=== PATIENT | female | born 1975 | race American Indian/Alaskan Native ===

== ENCOUNTER 2016-09-29 10:34 | Outpatient (CLI) | payer OTHER ==
--- NOTE | 2016-09-29 11:57 | XRay Report ---
LUMBAR SPINE RADIOGRAPHS: INDICATION: Lumbar pain. COMPARISON: 09/14/2013. FINDINGS: AP and lateral lumbar spine radiographs demonstrate normal vertebral body stature and alignment. Mild L3-L5 degenerative spurring again noted. Normal disc heights. Intact SI joints. Some extrinsic clothing artifact. Nonobstructive bowel gas pattern. CONCLUSION: No acute radiographic abnormality or significant interval change with mild degenerative changes again seen. Thank you for the opportunity to participate in this patient's care.
== END 2016-09-29 10:35 | disposition home or self-care (01) ==
LOC: XRAY 10:34
PROVIDERS: ATTEND Internal Medicine
DX: F31.9 Bipolar disorder, unspecified (principal); M47.897 Other spondylosis, lumbosacral region
CPT/HCPCS: 72100

== ENCOUNTER 2017-10-19 08:24 | Emergency (ER) | payer MEDICAID, OTHER ==
[2017-10-19 08:37] VITALS: BP 136/86
[2017-10-19] MEDS ORDERED: ASPIRIN PO ONE (08:38)
[2017-10-19 09:15] LABS: Basophils % (Auto) 0.6 % (0.0-1.8); Eosinophils # (Auto) 0.1 K/mm3 (0.0-0.4); Eosinophils % (Auto) 2.3 % (0.0-4.3); Hematocrit 39.1 % (30.3-42.9); Hemoglobin 12.6 gm/dl (10.1-14.3); Lymphocytes # (Auto) 2.1 K/mm3 (1.2-5.4); Lymphocytes % (Auto) 39.4 % (13.4-35.0); Mean Corpuscular HGB Conc 32 % (30-34); Mean Corpuscular Hemoglobin 27 pg (28-32); Mean Corpuscular Volume 83 fl (79-97); Monocytes # (Auto) 0.4 K/mm3 (0.0-0.8); Monocytes % (Auto) 6.6 % (0.0-7.3); Platelet Count 279 K/mm3 (140-440); Red Blood Count 4.69 M/mm3 (3.65-5.03); Red Cell Distribution Width 13.8 % (13.2-15.2)
[2017-10-19 09:32] LABS: BUN/Creatinine Ratio 27; Blood Urea Nitrogen 16 mg/dL (7-17); Calcium 9.5 mg/dL (8.4-10.2); Hemolysis Index 9
== END 2017-10-19 11:22 | disposition left against medical advice (07) ==
LOC: ED 08:24
DX: R07.9 Chest pain, unspecified (principal); Z53.21 Procedure and treatment not carried out due to patient leaving prior to being seen by health care provider
CPT/HCPCS: 36415; 80048; 84484; 85025; 93005; 93010

== ENCOUNTER 2018-04-27 12:50 | Emergency (ER) | payer MEDICAID ==
[2018-04-27 13:09] VITALS: BP 132/81
--- NOTE | 2018-04-27 15:05 | Emergency Department Report ---
ED Extremity Problem HPI - General Chief complaint: Extremity Injury, Upper Stated complaint: NUMB BOTH HANDS Time Seen by Provider: 04/27/18 14:52 Source: patient Mode of arrival: Ambulatory Limitations: No Limitations - History of Present Illness Initial comments: Patient is a 42-year-old female who is presenting with bilateral hand pain. Patient states some hot burning sensation this been present since December. 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 Patient denies any trauma or fevers chills nausea vomiting. Patient states the pain is a 9 out of 10 in severity. - Related Data Previous Rx's Medication Instructions Recorded Last Taken Type Azithromycin [Zithromax] 500 mg PO QDAY #7 tablet 05/19/13 Unknown Rx HYDROcodone/APAP 5-325 [[place] 1 each PO Q6HR PRN #20 tablet 05/19/13 Unknown Rx 5/325 mg] Hydrocodone Bit/Acetaminophen 1 tab PO Q6H PRN #20 tablet 07/11/13 Unknown Rx [Lortab 10-500 mg] Promethazine [Phenergan] 25 mg PO Q6H PRN #12 tablet 07/11/13 Unknown Rx Clindamycin [Clindamycin Oral] 300 mg PO Q8H #30 cap 07/16/13 Unknown Rx Sulfamethoxazole/Trimethoprim 1 each PO BID #20 tablet 07/16/13 Unknown Rx [Bactrim DS] Cyclobenzaprine HCl [Flexeril] 10 mg PO TID PRN #14 tablet 09/14/13 Unknown Rx HYDROcodone/APAP 5-325 [[place] 1 each PO Q6HR PRN #14 tablet 09/14/13 Unknown Rx 5/325 mg] Ibuprofen [Motrin 800 MG tab] 800 mg PO TID #30 tablet 09/14/13 Unknown Rx Famotidine [Pepcid] 20 mg PO BID #20 tablet 07/15/14 Unknown Rx traMADol [Ultram] 50 mg PO Q6HR PRN #14 tablet 07/15/14 Unknown Rx HYDROcodone/APAP 5-325 [[place] 1 each PO Q4HR PRN #12 tablet 04/27/18 Unknown Rx 5/325] predniSONE [Deltasone] 20 mg PO QDAY #5 tab 04/27/18 Unknown Rx Allergies Allergy/AdvReac Type Severity Reaction Status Date / Time IV contrast Allergy Rash Uncoded 07/14/13 06:10 ED Review of Systems ROS: Stated complaint: NUMB BOTH HANDS Other details as noted in HPI Comment: All other systems reviewed and negative ED Past Medical Hx - Past Medical History Hx Congestive Heart Failure: No Hx Diabetes: No Hx Psychiatric Treatment: Yes (depression) Hx Asthma: No Hx COPD: No Additional medical history: high cholestrol - Surgical History Additional Surgical History: x3. tubal ligation - Social History Smoking Status: Never Smoker Substance Use Type: None - Medications Home Medications: Home Medications Medication Instructions Recorded Confirmed Last Taken Type Azithromycin [Zithromax] 500 mg PO QDAY #7 tablet 05/19/13 Unknown Rx HYDROcodone/APAP 5-325 [[place] 1 each PO Q6HR PRN #20 tablet 05/19/13 Unknown Rx 5/325 mg] Hydrocodone Bit/Acetaminophen 1 tab PO Q6H PRN #20 tablet 07/11/13 Unknown Rx [Lortab 10-500 mg] Promethazine [Phenergan] 25 mg PO Q6H PRN #12 tablet 07/11/13 Unknown Rx Clindamycin [Clindamycin Oral] 300 mg PO Q8H #30 cap 07/16/13 Unknown Rx Sulfamethoxazole/Trimethoprim 1 each PO BID #20 tablet 07/16/13 Unknown Rx [Bactrim DS] Cyclobenzaprine HCl [Flexeril] 10 mg PO TID PRN #14 tablet 09/14/13 Unknown Rx HYDROcodone/APAP 5-325 [[place] 1 each PO Q6HR PRN #14 tablet 09/14/13 Unknown Rx 5/325 mg] Ibuprofen [Motrin 800 MG tab] 800 mg PO TID #30 tablet 09/14/13 Unknown Rx Famotidine [Pepcid] 20 mg PO BID #20 tablet 07/15/14 Unknown Rx traMADol [Ultram] 50 mg PO Q6HR PRN #14 tablet 07/15/14 Unknown Rx HYDROcodone/APAP 5-325 [[place] 1 each PO Q4HR PRN #12 tablet 04/27/18 Unknown Rx 5/325] predniSONE [Deltasone] 20 mg PO QDAY #5 tab 04/27/18 Unknown Rx ED Physical Exam - General Limitations: No Limitations General appearance: alert, in no apparent distress - Head Head exam: Present: atraumatic, normocephalic - Eye Eye exam: Present: normal appearance - ENT ENT exam: Present: mucous membranes moist - Neck Neck exam: Present: normal inspection - Respiratory Respiratory exam: Present: normal lung sounds bilaterally. Absent: respiratory distress - Cardiovascular Cardiovascular Exam: Present: regular rate, normal rhythm. Absent: systolic murmur, diastolic murmur, rubs, gallop - GI/Abdominal GI/Abdominal exam: Present: soft, normal bowel sounds - Extremities Exam Extremities exam: Present: normal inspection, full ROM, tenderness, normal capillary refill, other (patient's bilateral radial pulses are 2+.). Absent: joint swelling - Back Exam Back exam: Present: normal inspection - Neurological Exam Neurological exam: Present: alert, oriented X3 - Psychiatric Psychiatric exam: Present: normal affect, normal mood - Skin Skin exam: Present: warm, dry, intact, normal color. Absent: rash ED Course Vital Signs 04/27/18 13:04 Temperature 98.1 F Pulse Rate 74 Respiratory 18 Rate Blood Pressure 132/81 O2 Sat by Pulse 100 Oximetry ED Medical Decision Making - Medical Decision Making Patient is describing radicular type pain in the bilateral hands. Patient referred to orthopedics and will be discharged home. Patient splinted to reduce movement of the wrist and attempted to try to calm the nerve pain. Critical care attestation.: If time is entered above; I have spent that time in minutes in the direct care of this critically ill patient, excluding procedure time. ED Disposition Clinical Impression: Neuropathy Disposition: DC-01 TO HOME OR SELFCARE Is pt being admited?: No Does the pt Need Aspirin: No Condition: Stable Instructions: Peripheral Neuropathy (ED) Referrals: PRIMARY CARE, [Primary Care Provider] - 3-5 Days Time of Disposition: 15:05 Print Language: HEBREW
== END 2018-04-27 15:46 | disposition home or self-care (01) ==
LOC: ED 12:50
DX: G62.9 Polyneuropathy, unspecified (principal); F32.9 Major depressive disorder, single episode, unspecified; E78.00 Pure hypercholesterolemia, unspecified; Z98.51 Tubal ligation status; Z91.041 Radiographic dye allergy status; Z79.899 Other long term (current) drug therapy
CPT/HCPCS: 99283

== ENCOUNTER 2019-04-11 10:02 | Emergency (ER) | payer MEDICAID ==
[2019-04-11] MEDS ORDERED: MORPHINE IV ONE (10:49)
[2019-04-11] MEDS ORDERED: ZOFRAN IV ONE (10:49)
--- NOTE | 2019-04-11 10:53 | Emergency Department Report ---
ED General Adult HPI - General Chief complaint: Abdominal Pain Stated complaint: RT SIDE ABD PAIN Time Seen by Provider: 04/11/19 10:20 Source: patient, EMS Mode of arrival: Stretcher Limitations: No Limitations - History of Present Illness Initial comments: Patient presents to the ED with a chief complaint of RUQ abdominal pain x 2 weeks. patient was seen at another hospital recently and diagnosed with gallstones. The patient states the pain is worse after eating. Also complains of nausea and vomiting. Denies chest pain. -: Gradual Location: abdomen Radiation: other (back) Severity scale (0 -10): 10 Quality: sharp Consistency: constant Improves with: none Worsens with: none Associated Symptoms: denies other symptoms Treatments Prior to Arrival: none - Related Data Previous Rx's Medication Instructions Recorded Last Taken Type Azithromycin [Zithromax] 500 mg PO QDAY #7 tablet 05/19/13 Unknown Rx HYDROcodone/APAP 5-325 [[place] 1 each PO Q6HR PRN #20 tablet 05/19/13 Unknown Rx 5/325 mg] Hydrocodone Bit/Acetaminophen 1 tab PO Q6H PRN #20 tablet 07/11/13 Unknown Rx [Lortab 10-500 mg] Promethazine [Phenergan] 25 mg PO Q6H PRN #12 tablet 07/11/13 Unknown Rx Clindamycin [Clindamycin Oral] 300 mg PO Q8H #30 cap 07/16/13 Unknown Rx Sulfamethoxazole/Trimethoprim 1 each PO BID #20 tablet 07/16/13 Unknown Rx [Bactrim DS] Cyclobenzaprine HCl [Flexeril] 10 mg PO TID PRN #14 tablet 09/14/13 Unknown Rx HYDROcodone/APAP 5-325 [[place] 1 each PO Q6HR PRN #14 tablet 09/14/13 Unknown Rx 5/325 mg] Ibuprofen [Motrin 800 MG tab] 800 mg PO TID #30 tablet 09/14/13 Unknown Rx Famotidine [Pepcid] 20 mg PO BID #20 tablet 07/15/14 Unknown Rx traMADol [Ultram] 50 mg PO Q6HR PRN #14 tablet 07/15/14 Unknown Rx HYDROcodone/APAP 5-325 [[place] 1 each PO Q4HR PRN #12 tablet 04/27/18 Unknown Rx 5/325] predniSONE [Deltasone] 20 mg PO QDAY #5 tab 04/27/18 Unknown Rx HYDROcodone/APAP 7.5-325 [[place] 1 each PO Q6HR PRN #15 tablet 04/11/19 Unknown Rx 7.5/325] Ondansetron [Zofran Odt] 4 mg PO Q4HR PRN #20 tab.rapdis 04/11/19 Unknown Rx Allergies Allergy/AdvReac Type Severity Reaction Status Date / Time IV contrast Allergy Rash Uncoded 07/14/13 06:10 ED Review of Systems ROS: Stated complaint: RT SIDE ABD PAIN Other details as noted in HPI Comment: All other systems reviewed and negative Constitutional: denies: chills, fever Eyes: denies: eye pain, eye discharge, vision change ENT: denies: ear pain, throat pain Respiratory: denies: cough, shortness of breath, wheezing Cardiovascular: denies: chest pain, palpitations Endocrine: no symptoms reported Gastrointestinal: abdominal pain. denies: nausea, diarrhea Genitourinary: denies: urgency, dysuria, discharge Musculoskeletal: denies: back pain, joint swelling, arthralgia Skin: denies: rash, lesions Neurological: denies: headache, weakness, paresthesias Psychiatric: denies: anxiety, depression Hematological/Lymphatic: denies: easy bleeding, easy bruising ED Past Medical Hx - Past Medical History Hx Hypertension: Yes Hx Congestive Heart Failure: No Hx Diabetes: No Hx Psychiatric Treatment: Yes (depression) Hx Asthma: No Hx COPD: No Additional medical history: high cholestrol - Surgical History Past Surgical History?: Yes Additional Surgical History: x3. tubal ligation - Social History Smoking Status: Current Every Day Smoker - Medications Home Medications: Home Medications Medication Instructions Recorded Confirmed Last Taken Type Azithromycin [Zithromax] 500 mg PO QDAY #7 tablet 05/19/13 Unknown Rx HYDROcodone/APAP 5-325 [[place] 1 each PO Q6HR PRN #20 tablet 05/19/13 Unknown Rx 5/325 mg] Hydrocodone Bit/Acetaminophen 1 tab PO Q6H PRN #20 tablet 07/11/13 Unknown Rx [Lortab 10-500 mg] Promethazine [Phenergan] 25 mg PO Q6H PRN #12 tablet 07/11/13 Unknown Rx Clindamycin [Clindamycin Oral] 300 mg PO Q8H #30 cap 07/16/13 Unknown Rx Sulfamethoxazole/Trimethoprim 1 each PO BID #20 tablet 07/16/13 Unknown Rx [Bactrim DS] Cyclobenzaprine HCl [Flexeril] 10 mg PO TID PRN #14 tablet 09/14/13 Unknown Rx HYDROcodone/APAP 5-325 [[place] 1 each PO Q6HR PRN #14 tablet 09/14/13 Unknown Rx 5/325 mg] Ibuprofen [Motrin 800 MG tab] 800 mg PO TID #30 tablet 09/14/13 Unknown Rx Famotidine [Pepcid] 20 mg PO BID #20 tablet 07/15/14 Unknown Rx traMADol [Ultram] 50 mg PO Q6HR PRN #14 tablet 07/15/14 Unknown Rx HYDROcodone/APAP 5-325 [[place] 1 each PO Q4HR PRN #12 tablet 04/27/18 Unknown Rx 5/325] predniSONE [Deltasone] 20 mg PO QDAY #5 tab 04/27/18 Unknown Rx HYDROcodone/APAP 7.5-325 [[place] 1 each PO Q6HR PRN #15 tablet 04/11/19 Unknown Rx 7.5/325] Ondansetron [Zofran Odt] 4 mg PO Q4HR PRN #20 tab.rapdis 04/11/19 Unknown Rx ED Physical Exam - General Limitations: No Limitations General appearance: alert, in no apparent distress - Head Head exam: Present: atraumatic, normocephalic - Eye Eye exam: Present: normal appearance, PERRL, EOMI - ENT ENT exam: Present: mucous membranes moist - Neck Neck exam: Present: normal inspection - Respiratory Respiratory exam: Present: normal lung sounds bilaterally. Absent: respiratory distress - Cardiovascular Cardiovascular Exam: Present: regular rate, normal rhythm. Absent: systolic murmur, diastolic murmur, rubs, gallop - GI/Abdominal GI/Abdominal exam: Present: soft, tenderness (ttp RUQ), normal bowel sounds. Absent: distended - Extremities Exam Extremities exam: Present: normal inspection - Back Exam Back exam: Present: normal inspection - Neurological Exam Neurological exam: Present: alert, oriented X3, CN II-XII intact. Absent: motor sensory deficit - Psychiatric Psychiatric exam: Present: normal affect, normal mood - Skin Skin exam: Present: warm, dry, intact, normal color. Absent: rash ED Course Vital Signs 04/11/19 10:19 Temperature 98.8 F Pulse Rate 83 Respiratory 16 Rate Blood Pressure 144/99 Blood Pressure 144/99 [Left] O2 Sat by Pulse 99 Oximetry ED Medical Decision Making - Lab Data Result diagrams: 04/11/19 11:21 04/11/19 11:21 Lab Results 04/11/19 04/11/19 04/11/19 Range/Units 11:21 11:21 11:21 WBC 5.2 (4.5-11.0) K/mm3 RBC 4.61 (3.65-5.03) M/mm3 Hgb 13.0 (10.1-14.3) gm/dl Hct 38.2 (30.3-42.9) % MCV 83 (79-97) fl MCH 28 (28-32) pg MCHC 34 (30-34) % RDW 13.8 (13.2-15.2) % Plt Count 268 (140-440) K/mm3 Lymph % (Auto) 44.8 H (13.4-35.0) % Mower % (Auto) 6.3 (0.0-7.3) % Eos % (Auto) 1.9 (0.0-4.3) % Baso % (Auto) 0.4 (0.0-1.8) % Lymph # 2.3 (1.2-5.4) K/mm3 Mower # 0.3 (0.0-0.8) K/mm3 Eos # 0.1 (0.0-0.4) K/mm3 Baso # 0.0 (0.0-0.1) K/mm3 Seg Neutrophils % 46.6 (40.0-70.0) % Seg Neutrophils # 2.4 (1.8-7.7) K/mm3 PT 13.7 (12.2-14.9) Sec. INR 1.08 (0.87-1.13) APTT 27.0 (24.2-36.6) Sec. Sodium 139 (137-145) mmol/L Potassium 4.3 (3.6-5.0) mmol/L Chloride 102.5 (98-107) mmol/L Carbon Dioxide 25 (22-30) mmol/L Anion Gap 16 mmol/L BUN 13 (7-17) mg/dL Creatinine 0.8 (0.7-1.2) mg/dL Estimated GFR > 60 ml/min BUN/Creatinine Ratio 16 % Glucose 97 (65-100) mg/dL Calcium 9.4 (8.4-10.2) mg/dL Total Bilirubin 0.20 (0.1-1.2) mg/dL AST 22 (5-40) units/L ALT 25 (7-56) units/L Alkaline Phosphatase 98 (35-129) units/L Total Protein 7.6 (6.3-8.2) g/dL Albumin 4.2 (3.9-5) g/dL Albumin/Globulin Ratio 1.2 % Lipase 22 (13-60) units/L Critical care attestation.: If time is entered above; I have spent that time in minutes in the direct care of this critically ill patient, excluding procedure time. ED Disposition Clinical Impression: Cholelithiases Disposition: - TO HOME OR SELFCARE Is pt being admited?: No Does the pt Need Aspirin: No Condition: Stable Instructions: Abdominal Pain (ED), Cholelithiasis (ED) Additional Instructions: return if worse Referrals: PADDY STEIN [Other] - 3-5 Days LARISSA WELCH DO [Staff Physician] - 3-5 Days Time of Disposition: 14:38
[2019-04-11 11:33] LABS: Basophils % (Auto) 0.4 % (0.0-1.8); Eosinophils # (Auto) 0.1 K/mm3 (0.0-0.4); Eosinophils % (Auto) 1.9 % (0.0-4.3); Hematocrit 38.2 % (30.3-42.9); Lymphocytes # (Auto) 2.3 K/mm3 (1.2-5.4); Lymphocytes % (Auto) 44.8 % (13.4-35.0); Mean Corpuscular HGB Conc 34 % (30-34); Mean Corpuscular Volume 83 fl (79-97); Monocytes # (Auto) 0.3 K/mm3 (0.0-0.8); Monocytes % (Auto) 6.3 % (0.0-7.3); Platelet Count 268 K/mm3 (140-440); Red Blood Count 4.61 M/mm3 (3.65-5.03); Red Cell Distribution Width 13.8 % (13.2-15.2)
[2019-04-11 11:43] LABS: INR 1.08 (0.87-1.13)
[2019-04-11 11:55] LABS: Alanine Aminotransferase 25 units/L (7-56); Albumin 4.2 g/dL (3.9-5); BUN/Creatinine Ratio 16; Blood Urea Nitrogen 13 mg/dL (7-17); Calcium 9.4 mg/dL (8.4-10.2); Hemolysis Index 3
--- NOTE | 2019-04-11 14:00 | Ultrasound Report ---
LIMITED RUQ ABDOMINAL ULTRASOUND INDICATION: Right upper quadrant abdominal pain. COMPARISON: No relevant prior imaging study available. FINDINGS: Pancreas: Visualized portions show no significant abnormality. Abdominal Aorta: No significant abnormality. IVC: No significant abnormality. Liver: The liver measures 15 cm in length. Mild diffuse fatty infiltration is suspected in the liver . No mass or surface nodularity. Normal hepatopedal blood flow in the main portal vein. Gallbladder: A small amount of sludge is identified in the gallbladder. No shadowing stones, wall thi ckening or surrounding fluid.. Bile ducts: No significant abnormality. Common bile duct measures 4 mm. Right kidney: No significant abnormality visualized.. Free fluid: None. Additional Findings: None. IMPRESSION: Mild hepatic steatosis. Mild degree of sludge in the gallbladder. Signer Name: Delano Robbins Jr, MD Signed: 04/11/2019 1:55 PM Workstation Name: [id number]
[2019-04-11 15:03] VITALS: BP 123/80
== END 2019-04-11 15:09 | disposition home or self-care (01) ==
LOC: ED 10:02
DX: K80.20 Calculus of gallbladder without cholecystitis without obstruction (principal); I10 Essential (primary) hypertension; F32.9 Major depressive disorder, single episode, unspecified; F17.200 Nicotine dependence, unspecified, uncomplicated; E78.00 Pure hypercholesterolemia, unspecified; Z98.51 Tubal ligation status; Z98.890 Other specified postprocedural states; Z79.899 Other long term (current) drug therapy; Z91.041 Radiographic dye allergy status
CPT/HCPCS: 36415; 76705; 80053; 83690; 85025; 85610; 85730; 96374; 96375; 99284; J2270; J2405

== ENCOUNTER 2019-04-13 05:28 | Emergency (ER) | payer MEDICAID ==
--- NOTE | 2019-04-13 06:10 | Emergency Department Report ---
ED General Adult HPI - General Chief complaint: Chest Pain Stated complaint: ABD PAIN SURGERY ON 04/12/19 Time Seen by Provider: 04/13/19 06:05 Source: patient, family, RN notes reviewed Mode of arrival: Wheelchair Limitations: No Limitations - History of Present Illness Initial comments: This is a 43-year-old female. The patient is not known to this provider previously. The patient has a history of chronic abdominal pain. She reports that she went to [facility] in [place] yesterday; [address]. [address], [facility]; [phone]. She had surgery done yesterday. She doesn't know what she had done. She requested that her daughter translate for her. She gives permission for her daughter to receive medical information. She presents to the ER today with a complaint of simultaneous left posterior thoracic pain, left anterior chest wall pain, epigastric pain. She has epigastric abdominal pain. She states the pain is constant since yesterday. She states it does not radiate anywhere. It increases with palpation, range of motion. It decreases with rest. Initially no nausea. No headache, neck pain, lower abdominal pain. No urinary symptoms. No extremity complaints. No recent aspirin consumption. The patient states that she is not . The patient states no DVT or pulmonary embolism risk factors, with the exception of recent surgery. -: Gradual Location: chest, back, abdomen Radiation: non-radiation Quality: aching Consistency: constant Improves with: other Worsens with: other - Related Data Previous Rx's Medication Instructions Recorded Last Taken Type Azithromycin [Zithromax] 500 mg PO QDAY #7 tablet 05/19/13 Unknown Rx HYDROcodone/APAP 5-325 [[place] 1 each PO Q6HR PRN #20 tablet 05/19/13 Unknown Rx 5/325 mg] Hydrocodone Bit/Acetaminophen 1 tab PO Q6H PRN #20 tablet 07/11/13 Unknown Rx [Lortab 10-500 mg] Promethazine [Phenergan] 25 mg PO Q6H PRN #12 tablet 07/11/13 Unknown Rx Clindamycin [Clindamycin Oral] 300 mg PO Q8H #30 cap 07/16/13 Unknown Rx Sulfamethoxazole/Trimethoprim 1 each PO BID #20 tablet 07/16/13 Unknown Rx [Bactrim DS] Cyclobenzaprine HCl [Flexeril] 10 mg PO TID PRN #14 tablet 09/14/13 Unknown Rx HYDROcodone/APAP 5-325 [[place] 1 each PO Q6HR PRN #14 tablet 09/14/13 Unknown Rx 5/325 mg] Ibuprofen [Motrin 800 MG tab] 800 mg PO TID #30 tablet 09/14/13 Unknown Rx Famotidine [Pepcid] 20 mg PO BID #20 tablet 07/15/14 Unknown Rx traMADol [Ultram] 50 mg PO Q6HR PRN #14 tablet 07/15/14 Unknown Rx HYDROcodone/APAP 5-325 [[place] 1 each PO Q4HR PRN #12 tablet 04/27/18 Unknown Rx 5/325] predniSONE [Deltasone] 20 mg PO QDAY #5 tab 04/27/18 Unknown Rx HYDROcodone/APAP 7.5-325 [[place] 1 each PO Q6HR PRN #15 tablet 04/11/19 Unknown Rx 7.5/325] Ondansetron [Zofran Odt] 4 mg PO Q4HR PRN #20 tab.rapdis 04/11/19 Unknown Rx Ondansetron [Zofran Odt] 4 mg PO Q8HR PRN #20 tab.rapdis 04/13/19 Unknown Rx oxyCODONE /ACETAMINOPHEN [Percocet 1 tab PO Q6HR PRN #9 tablet 04/13/19 Unknown Rx 5/325] Allergies Allergy/AdvReac Type Severity Reaction Status Date / Time IV contrast Allergy Rash Uncoded 07/14/13 06:10 ED Review of Systems ROS: Stated complaint: ABD PAIN SURGERY ON 04/12/19 Other details as noted in HPI Constitutional: denies: fever Eyes: denies: eye discharge ENT: denies: epistaxis Respiratory: shortness of breath. denies: cough Cardiovascular: chest pain Gastrointestinal: abdominal pain, nausea Genitourinary: denies: dysuria Musculoskeletal: back pain Skin: denies: lesions Neurological: weakness Psychiatric: anxiety ED Past Medical Hx - Past Medical History Previous Medical History?: Yes Hx Hypertension: Yes Hx Congestive Heart Failure: No Hx Diabetes: No Hx Psychiatric Treatment: Yes (depression, bipolar) Hx Asthma: No Hx COPD: No Additional medical history: high cholestrol - Surgical History Past Surgical History?: Yes Hx Cholecystectomy: Yes Additional Surgical History: x3. tubal ligation. hysterectomy - Social History Smoking Status: Never Smoker Substance Use Type: None - Medications Home Medications: Home Medications Medication Instructions Recorded Confirmed Last Taken Type Azithromycin [Zithromax] 500 mg PO QDAY #7 tablet 05/19/13 Unknown Rx HYDROcodone/APAP 5-325 [[place] 1 each PO Q6HR PRN #20 tablet 05/19/13 Unknown Rx 5/325 mg] Hydrocodone Bit/Acetaminophen 1 tab PO Q6H PRN #20 tablet 07/11/13 Unknown Rx [Lortab 10-500 mg] Promethazine [Phenergan] 25 mg PO Q6H PRN #12 tablet 07/11/13 Unknown Rx Clindamycin [Clindamycin Oral] 300 mg PO Q8H #30 cap 07/16/13 Unknown Rx Sulfamethoxazole/Trimethoprim 1 each PO BID #20 tablet 07/16/13 Unknown Rx [Bactrim DS] Cyclobenzaprine HCl [Flexeril] 10 mg PO TID PRN #14 tablet 09/14/13 Unknown Rx HYDROcodone/APAP 5-325 [[place] 1 each PO Q6HR PRN #14 tablet 09/14/13 Unknown Rx 5/325 mg] Ibuprofen [Motrin 800 MG tab] 800 mg PO TID #30 tablet 09/14/13 Unknown Rx Famotidine [Pepcid] 20 mg PO BID #20 tablet 07/15/14 Unknown Rx traMADol [Ultram] 50 mg PO Q6HR PRN #14 tablet 07/15/14 Unknown Rx HYDROcodone/APAP 5-325 [[place] 1 each PO Q4HR PRN #12 tablet 04/27/18 Unknown Rx 5/325] predniSONE [Deltasone] 20 mg PO QDAY #5 tab 04/27/18 Unknown Rx HYDROcodone/APAP 7.5-325 [[place] 1 each PO Q6HR PRN #15 tablet 04/11/19 Unknown Rx 7.5/325] Ondansetron [Zofran Odt] 4 mg PO Q4HR PRN #20 tab.rapdis 04/11/19 Unknown Rx Ondansetron [Zofran Odt] 4 mg PO Q8HR PRN #20 tab.rapdis 04/13/19 Unknown Rx oxyCODONE /ACETAMINOPHEN [Percocet 1 tab PO Q6HR PRN #9 tablet 04/13/19 Unknown Rx 5/325] ED Physical Exam - General Limitations: Language Barrier General appearance: alert, anxious, obese - Head Head exam: Present: atraumatic, normocephalic - Eye Eye exam: Present: normal appearance, EOMI - ENT ENT exam: Present: normal exam, normal orophraynx, mucous membranes moist, normal external ear exam - Neck Neck exam: Present: normal inspection, full ROM. Absent: tenderness, meningismus - Respiratory Respiratory exam: Present: normal lung sounds bilaterally, chest wall tenderness (chaperoned by nurse Tamiko Kearney). Absent: respiratory distress, wheezes, rales, rhonchi, stridor - Cardiovascular Cardiovascular Exam: Present: regular rate, normal rhythm, normal heart sounds. Absent: bradycardia, tachycardia, irregular rhythm, systolic murmur, diastolic murmur, rubs, gallop - GI/Abdominal GI/Abdominal exam: Present: soft, other (multiple surgical sites noted. There is no redness, pus or streaking. Multiple surgical sites noted. No redness, pus or streaking.). Absent: distended, tenderness, guarding, rebound, rigid, pulsatile mass - Extremities Exam Extremities exam: Present: normal inspection, full ROM, other (2+ pulses noted in the bilateral upper, lower extremities. Compartments soft. No long bony tenderness. The pelvis is stable.). Absent: pedal edema, joint swelling, calf tenderness - Back Exam Back exam: Present: paraspinal tenderness. Absent: tenderness - Neurological Exam Neurological exam: Present: alert, other (Extraocular movements intact. Tongue midline. No facial droop. Facial sensation intact to light touch in the V1, V2, V3 distribution bilaterally. 5 and 5 strength in 4 extremities.. Sensation is intact to light touch in 4 extremities.) - Psychiatric Psychiatric exam: Present: anxious - Skin Skin exam: Present: warm, dry, intact, normal color. 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 1 06/18/2018 ACETAMINOPHEN-COD #3 TABLET 30.0 7 RA GIRISH [id number] EMILY' ([id number]) 0 19.29 MME Medicaid [place] 04/16/2018 2 04/16/2018 HYDROCODONE-ACETAMIN 5-325 MG 10 3 JU CLA [id number] ANGELLA-M ([id number]) 0 [place] Reevaluation #2: 04/13/19 08:00 Differential diagnosis, including without limited to: Postoperative pain, musculoskeletal pain, costochondritis, GERD, gastritis, hiatal hernia, pneumonia, pulmonary embolism, postsurgical complication Assessment and plan: 43-year-old female who presents to the ER today with a complaint of left posterior thoracic pain, left anterior chest wall pain, subsequent nausea, reports having had a surgery yesterday. The patient does not know what surgery she had done. She does not know the name of her surgeon. Her physical exam is unremarkable, with the exception of reproducible left posterior thoracic pain, anterior chest wall tenderness, and postsurgical wounds, which are covered, nontender, and did not appear to be superinfected. Her symptoms will be treated. The CT angiogram is not currently working at this time as the hospital is undergoing scheduled down time. However, we will obtain a CT scan of the chest, and a CT scan of the abdomen and pelvis with IV and oral contrast. Patient endorses that her allergy to IV contrast is burning in her buttocks. She does not endorse any anaphylactic or anaphylactoid reaction to IV contrast. Furthermore, the patient has received IV contrast at this hospital in the past, without any documented complications that I can determine. We will premedicate her, treat her symptoms. D-dimer elevated, chest x-ray reviewed and appreciated, nuclear medicine study obtained, and we will reassess. From a coronary artery disease standpoint, the patient is low risk by the heart score. 04/13/19 08:00 Reevaluation #3: 04/13/19 08:43 Laboratory studies unremarkable. Nuclear medicine study is low probability for pulmonary embolism. Patient sleeping comfortably, in stretcher, does not appear to be in any acute distress. Her second EKG is unchanged from her prior EKG. Apparently, she had a cholecystectomy yesterday, performed laparoscopically, and her general surgeon of record is Dr. Gibbs Reevaluation #4: 04/13/19 10:17 Patient reevaluated multiple times while here in this department. Nuclear medicine study low probability for pulmonary embolism. Troponin is negative 2. EKG is unchanged 2. CT scan of the chest is negative for acute disease. CT scan of the abdomen and pelvis negative for acute significant disease, shows expected postsurgical findings. Patient does not appear to have an emergent medical condition at this time. She'll need to follow-up with her outpatient surgeon, and she can follow-up with an outpatient primary care doctor or cook pickled meat. We will discharge with pain medication and nausea medication. Reevaluation #5: 04/13/19 10:26 The belly is soft on repeat final examination. The patient is sleeping comfortably in her stretcher and in no acute distress. Explain significance of laboratory studies and objective imaging studies to patient in [place]i and in Macedonian. Addition, family at the bedside, and patient provides consent for her information to to be discussed in front of her family. Furthermore, her family additionally translates with this provider informs the patient. The patient was counseled that she does not appear to have an emergent medical condition at this time, and that she will need to follow-up with her general surgeon of record and her primary care doctor. Furthermore, she is given printed instructions in [place]i and Macedonian. ED Medical Decision Making - Lab Data Result diagrams: 04/13/19 05:51 04/13/19 05:51 Vital Signs 04/13/19 04/13/19 04/13/19 05:30 06:10 06:16 Temperature 98.2 F Pulse Rate 96 H 88 85 Respiratory 18 17 13 Rate Blood Pressure 160/92 152/83 O2 Sat by Pulse 97 97 Oximetry 04/13/19 04/13/19 06:29 06:30 Temperature Pulse Rate 86 Respiratory 18 17 Rate Blood Pressure 152/83 O2 Sat by Pulse 98 Oximetry Lab Results 04/13/19 04/13/19 04/13/19 Range/Units 05:51 05:51 05:51 WBC 8.4 (4.5-11.0) K/mm3 RBC 4.71 (3.65-5.03) M/mm3 Hgb 13.0 (10.1-14.3) gm/dl Hct 39.4 (30.3-42.9) % MCV 84 (79-97) fl MCH 28 (28-32) pg MCHC 33 (30-34) % RDW 13.9 (13.2-15.2) % Plt Count 265 (140-440) K/mm3 PT 13.1 (12.2-14.9) Sec. INR 1.02 (0.87-1.13) APTT 23.0 L (24.2-36.6) Sec. D-Dimer 297.48 H (0-234) ng/mlDDU Sodium 139 (137-145) mmol/L Potassium 4.2 (3.6-5.0) mmol/L Chloride 102.8 (98-107) mmol/L Carbon Dioxide 21 L (22-30) mmol/L Anion Gap 19 mmol/L BUN 9 (7-17) mg/dL Creatinine 0.6 L (0.7-1.2) mg/dL Estimated GFR > 60 ml/min BUN/Creatinine Ratio 15 % Glucose 147 H (65-100) mg/dL Calcium 9.7 (8.4-10.2) mg/dL Magnesium (1.7-2.3) mg/dL Total Bilirubin (0.1-1.2) mg/dL Direct Bilirubin (0-0.2) mg/dL Indirect Bilirubin mg/dL AST (5-40) units/L ALT (7-56) units/L Alkaline Phosphatase (35-129) units/L Total Creatine Kinase (30-135) units/L Troponin T < 0.010 (0.00-0.029) ng/mL Total Protein (6.3-8.2) g/dL Albumin (3.9-5) g/dL Albumin/Globulin Ratio % Lipase (13-60) units/L /31/19 Range/Units 06:53 WBC (4.5-11.0) K/mm3 RBC (3.65-5.03) M/mm3 Hgb (10.1-14.3) gm/dl Hct (30.3-42.9) % MCV (79-97) fl MCH (28-32) pg MCHC (30-34) % RDW (13.2-15.2) % Plt Count (140-440) K/mm3 PT (12.2-14.9) Sec. INR (0.87-1.13) APTT (24.2-36.6) Sec. D-Dimer (0-234) ng/mlDDU Sodium (137-145) mmol/L Potassium (3.6-5.0) mmol/L Chloride (98-107) mmol/L Carbon Dioxide (22-30) mmol/L Anion Gap mmol/L BUN (7-17) mg/dL Creatinine (0.7-1.2) mg/dL Estimated GFR ml/min BUN/Creatinine Ratio % Glucose (65-100) mg/dL Calcium (8.4-10.2) mg/dL Magnesium 2.00 (1.7-2.3) mg/dL Total Bilirubin 0.30 (0.1-1.2) mg/dL Direct Bilirubin < 0.2 (0-0.2) mg/dL Indirect Bilirubin 0.1 mg/dL AST 50 H (5-40) units/L ALT 40 (7-56) units/L Alkaline Phosphatase 95 (35-129) units/L Total Creatine Kinase 111 (30-135) units/L Troponin T (0.00-0.029) ng/mL Total Protein 7.1 (6.3-8.2) g/dL Albumin 4.0 (3.9-5) g/dL Albumin/Globulin Ratio 1.3 % Lipase 14 (13-60) units/L - EKG Data -: EKG Interpreted by Md EKG shows normal: sinus rhythm Rate: normal - EKG Data Interpretation: unchanged when compared t 04/13/19 07:59 This is a sinus rhythm, 85 bpm, normal axis, qtc 134 ms, poor R wave progression, EKG is not consistent with ST elevation myocardial infarction, it is unchanged from prior EKG from October 2017. - Radiology Data Radiology results: report reviewed, image reviewed Print Report Referring Physician: ANGELICA SORIANO Patient Name: WILTON DAVIS Date of : 1975 Sex: Female Report Date: 2019-04-13 Report Status: Finalized Findings [facility] [address] [place] [address] XRay Report Signed Patient: WILTON DAVIS MR#: [id number] : 1975 Acct:[id number] Age/Sex: 43 / F ADM Date: 04/13/19 Loc: ED At [facility] Dr: Ordering Physician: ANGELICA SORIANO MD Date of Service: 04/13/19 Procedure(s): XR chest 1V ap Accession Number(s): [id number] cc: ANGELICA SORIANO MD Fluoro Time In Minutes: CHEST 1 VIEW INDICATION / CLINICAL INFORMATION: Chest Pain. COMPARISON: None available. FINDINGS: SUPPORT DEVICES: None. HEART / MEDIASTINUM: No significant abnormality. LUNGS / PLEURA: Minimal right basilar subsegmental atelectasis. No pneumothorax. ADDITIONAL FINDINGS: No significant additional findings. IMPRESSION: Minimal right basilar subsegmental atelectasis. The left lung is clear Signer Name: Basilio Voss MD FACR Signed: 04/13/2019 6:35 AM Workstation Name: [id number] Transcribed By: MS Dictated By: Basilio Voss MD Electronically Authenticated By: Basilio Voss MD Signed Date/Time: 04/13/19 0635 Critical care attestation.: If time is entered above; I have spent that time in minutes in the direct care of this critically ill patient, excluding procedure time. ED Disposition Clinical Impression: Left-sided thoracic back pain, Chest wall pain Disposition: DC- TO HOME OR SELFCARE Is pt being admited?: No Does the pt Need Aspirin: No Condition: Stable Instructions: Chest Pain (ED) Additional Instructions: Rest, avoid heavy lifting, and avoid strenuous physical activities. Take the pain medication, nausea medication as needed/directed. If taking Percocet for pain, do not drive, consume alcohol, or make important decisions. Recommend patient follow up with her general surgeon within the next 48-72 hours. Recommend patient follow up with the primary care doctor or cook pickled meat for her complaint of chest pain within the next 2-3 days. Return to the emergency room right away with new, worsened or different symptoms, or symptoms not present on the initial emergency room evaluation. Patients general surgeon contact information is as follows: [address] [place], [place] [address] Email: [email or web address] [place], evite levantar objetos pesados ??y evite actividades fsicas extenuantes. [place] el medicamento para el dolor, medicamentos para las nuseas segn sea necesario / dirigido. Si cm Percocet para el dolor, no conduzca, no consuma alcohol ni tome decisiones importantes. Recomiende un seguimiento del paciente con hernandez cirujano general dentro de las prximas 48-72 horas. Recomiende un seguimiento del paciente con el mdico de atencin primaria o el cardilogo para hernandez queja de dolor en el pecho dentro de los prximos 2-3 oconnor. Regrese a la gera de emergencias de inmediato con sntomas nuevos, empeorados o diferentes, o sntomas que no estn presentes en la evaluacin inicial de la gera de emergencias. La informacin de contacto del cirujano general de los pacientes es la siguiente: [address] [place], [place] [address] Correo [email or web address]: [email or web address] Prescriptions: oxyCODONE /ACETAMINOPHEN [Percocet 5/325] 1 tab PO Q6HR PRN #9 tablet PRN Reason: Pain Ondansetron [Zofran Odt] 4 mg PO Q8HR PRN #20 tab.rapdis PRN Reason: Nausea Referrals: [facility] [Provider Group] - 3-5 Days [facility] [Provider Group] - 3-5 Days Print Language: HEBREW
[2019-04-13] MEDS ORDERED: MORPHINE IV ONE (06:19)
[2019-04-13] MEDS ORDERED: NACL 0.9% 1000 ML 1,000 ML IV ONE (06:19)
[2019-04-13] MEDS ORDERED: PEPCID IV ONE (06:19)
[2019-04-13] MEDS ORDERED: SOLU-Medrol IV ONE (06:19)
[2019-04-13] MEDS ORDERED: BENADRYL IV ONE (06:19)
[2019-04-13 06:20] LABS: Hematocrit 39.4 % (30.3-42.9); Mean Corpuscular HGB Conc 33 % (30-34); Mean Corpuscular Volume 84 fl (79-97); Platelet Count 265 K/mm3 (140-440); Red Blood Count 4.71 M/mm3 (3.65-5.03); Red Cell Distribution Width 13.9 % (13.2-15.2)
[2019-04-13 06:36] LABS: INR 1.02 (0.87-1.13)
[2019-04-13 06:39] LABS: BUN/Creatinine Ratio 15; Blood Urea Nitrogen 9 mg/dL (7-17); Calcium 9.7 mg/dL (8.4-10.2); Hemolysis Index 3
--- NOTE | 2019-04-13 06:40 | XRay Report ---
CHEST 1 VIEW INDICATION / CLINICAL INFORMATION: Chest Pain. COMPARISON: None available. FINDINGS: SUPPORT DEVICES: None. HEART / MEDIASTINUM: No significant abnormality. LUNGS / PLEURA: Minimal right basilar subsegmental atelectasis. No pneumothorax. ADDITIONAL FINDINGS: No significant additional findings. IMPRESSION: Minimal right basilar subsegmental atelectasis. The left lung is clear Signer Name: Basilio Voss MD FACRavinder Signed: 04/13/2019 6:35 AM Workstation Name: [email or web address]
[2019-04-13] MEDS ORDERED: ZOFRAN ONE (06:59)
[2019-04-13] MEDS ORDERED: ZOFRAN IV ONE (07:03)
[2019-04-13 07:43] LABS: Alanine Aminotransferase 40 units/L (7-56)
[2019-04-13 07:47] LABS: Bilirubin,Direct < 0.2 mg/dL (0-0.2)
--- NOTE | 2019-04-13 08:11 | Nuclear Medicine Report ---
VENTILATION PERFUSION PULMONARY SCINTIGRAPHY HISTORY: Chest pain, shortness of breath. Recent gallbladder surgery this week. COMPARISON: 04/13/2019 at 0617 hours chest radiograph. TECHNIQUE: Radiopharmaceutical was inhaled. Tc-99m-MAA was then injected. Ventilation and perfusion images were acquired. RADIOPHARMACEUTICAL: 19 mCi of Xe-133 inhaled 5 mCi of Tc-99m-MAA injected FINDINGS: VENTILATION: No significant air trapping or defect. PERFUSION: No significant segmental or non-segmental defect. Additional Findings: None. IMPRESSION: 1. Low probability for pulmonary embolism. Signer Name: Delano Robbins Jr, MD Signed: 04/13/2019 8:07 AM Workstation Name: [id number]
--- NOTE | 2019-04-13 09:45 | Cat Scan Report ---
CT CHEST, ABDOMEN AND PELVIS WITH CONTRAST HISTORY: 1 day status post cholecystectomy. Back and chest pain on the left side. COMPARISON: None available. TECHNIQUE: CT images of the chest, abdomen and pelvis were obtained following administration of intra venous contrast.All CT scans at this location are performed using CT dose reduction for ALARA by mean s of automated exposure control. CONTRAST: 100 ml of Omnipaque 300. FINDINGS: CT CHEST: Heart and Pericardium: Normal. Vasculature: Normal. Lymphatics: No lymphadenopathy. Lungs: Mild bilateral lower lobe subsegmental atelectasis, right greater than left. No pleural effusi on. No pneumothorax. Trachea and Bronchi: No significant abnormality. Osseous Structures: Normal CT ABDOMEN: Liver: Normal. Biliary: Status post cholecystectomy with minimal postsurgical stranding in the bladder fossa. A sing le focus of air in the gallbladder fossa. Spleen: No significant abnormality. Unenlarged. Pancreas: No significant abnormality. Adrenals: No significant abnormality. Kidneys: No significant abnormality. The kidneys are normally opacified and the renal collecting syst ems are nondilated. Lymphatics: No lymphadenopathy. Vasculature: No significant abnormality. Bowel/Peritoneum: No significant abnormality. Minimal free air limited to the gallbladder fossa. No f ree fluid. Appendix not visualized. No pericecal inflammation. CT PELVIS: : Status post hysterectomy with a healed midline surgical scar. Normal urinary bladder and vaginal cuff. Ovaries are not identified. Osseous Structures: Normal Additional Findings: Minimal evidence of recent surgery in the anterior abdominal wall. No free pelvi c fluid. IMPRESSION: 1. Mild bilateral lower lobe subsegmental atelectasis, right greater than left and otherwise normal c hest. 2. Status post cholecystectomy with no evidence of complication. 3. Normal pelvis status post hysterectomy. Signer Name: Saúl Moreira MD Signed: 04/13/2019 9:41 AM Workstation Name: [id number]
[2019-04-13 10:51] VITALS: BP 131/78
[2019-04-13 11:18] LABS: Basophils % (Manual) 0 % (0.0-1.8); Eosinophils % (Manual) 0 % (0.0-4.3); Large Platelets Rare; Monocytes % (Manual) 0 % (0.0-7.3); Platelet Estimate Consistent w Auto; RBC Morphology Normal; Total Cells Counted 100
== END 2019-04-13 10:51 | disposition home or self-care (01) ==
LOC: ED 05:28
DX: M54.6 Pain in thoracic spine (principal); R07.89 Other chest pain; I10 Essential (primary) hypertension; F32.9 Major depressive disorder, single episode, unspecified; E78.00 Pure hypercholesterolemia, unspecified; Z90.49 Acquired absence of other specified parts of digestive tract; Z98.51 Tubal ligation status; Z90.710 Acquired absence of both cervix and uterus; Z79.899 Other long term (current) drug therapy; Z79.1 Long term (current) use of non-steroidal anti-inflammatories (NSAID); Z79.2 Long term (current) use of antibiotics; Z91.041 Radiographic dye allergy status
CPT/HCPCS: 36415; 71045; 71260; 74177; 78582; 80048; 80076; 82550; 83690; 83735; 84484; 85007; 85025; 85379; 85610; 85730; 93005; 93010; 96374; 96375; 99285; A9540; A9558; J1200; J2270; J2405; J2930; J7030; Q9967; 96361; Q9963

== ENCOUNTER 2019-04-14 16:34 | Emergency (ER) | payer MEDICAID ==
--- NOTE | 2019-04-14 17:32 | Emergency Department Report ---
Blank Doc - Documentation Documentation: This is a 43-year-old female that presents with itching and redness to back and buttock area from IV contrast since yesterday. This initial assessment/diagnostic orders/clinical plan/treatment(s) is/are subject to change based on patient's health status, clinical progression and re- assessment by fellow clinical providers in the ED. Further treatment and workup at subsequent clinical providers discretion. Patient/guardians urged not to elope from the ED as their condition may be serious if not clinically assessed and managed. Initial orders include: 1- Patient sent to [facility] for further evaluation and treatment
[2019-04-14 17:33] VITALS: BP 136/80
[2019-04-14] MEDS ORDERED: DECADRON IM ONE (19:35)
[2019-04-14] MEDS ORDERED: BENADRYL PO ONE (19:35)
[2019-04-14] MEDS ORDERED: PEPCID PO ONE (19:36)
[2019-04-14] MEDS ORDERED: THERMAZENE 50 GRAM TP ONE (20:36)
[2019-04-14] MEDS ORDERED: TORADOL IM ONE (20:39)
[2019-04-14] MEDS ORDERED: ZOFRAN ODT PO ONE (20:39)
[2019-04-14] MEDS ORDERED: NORCO 5/325 PO ONE (20:39)
--- NOTE | 2019-04-14 20:55 | Emergency Department Report ---
ED General Adult HPI - General Chief complaint: Skin Rash Stated complaint: ALLERGIC REACTION/BUTTOCK Time Seen by Provider: 04/14/19 17:31 Source: patient Mode of arrival: Ambulatory Limitations: No Limitations - History of Present Illness Initial comments: Patient is a 43-year-old female who presented to the ED with acute onset painful erythematous macular urticarial rash on her forearms bilaterally and her buttocks for 24 hours after being injected with the IV contrast dye during her procedure 24 hours ago. Patient states that she is status post laparoscopic cholecystectomy. Patient states that the rash has been worsening in his condition and itching with pain. The patient denies swelling of lips, swollen tongue, swollen throat, dysphagia, dysphonia, dizziness, fever, chills, nausea, vomiting, chest pain, diarrhea, shortness of breath or wheezing. MD Complaint: acute allergic reaction to IV contrast dye -: Sudden, hour(s) (24) Location: back (buttocks), upper extremity, lower extremity Radiation: non-radiation Severity scale (0 -10): 7 Quality: burning, aching, sharp Consistency: constant Improves with: none Worsens with: none Associated Symptoms: denies other symptoms. denies: confusion, chest pain, cough, diaphoresis, fever/chills, headaches, loss of appetite, malaise, nausea/vomiting, seizure, shortness of breath, syncope Treatments Prior to Arrival: none - Related Data Previous Rx's Medication Instructions Recorded Last Taken Type HYDROcodone/APAP 7.5-325 [[place] 1 each PO Q6HR PRN #15 tablet 04/11/19 Unknown Rx 7.5/325] Ondansetron [Zofran Odt] 4 mg PO Q8HR PRN #20 tab.rapdis 04/13/19 Unknown Rx oxyCODONE /ACETAMINOPHEN [Percocet 1 tab PO Q6HR PRN #9 tablet 04/13/19 Unknown Rx 5/325] Silver Sulfadiazine [Silvadene] 25 gm TP DAILY #25 cream..g. 04/14/19 Unknown Rx diphenhydrAMINE [Benadryl CAP] 50 mg PO Q8HR PRN #30 capsule 04/14/19 Unknown Rx predniSONE [Deltasone] 60 mg PO QDAY #15 tab 04/14/19 Unknown Rx raNITIdine HCl [Zantac] 150 mg PO DAILY #30 tablet 04/14/19 Unknown Rx Allergies Allergy/AdvReac Type Severity Reaction Status Date / Time IV contrast Allergy Rash Uncoded 07/14/13 06:10 ED Review of Systems ROS: Stated complaint: ALLERGIC REACTION/BUTTOCK Other details as noted in HPI Constitutional: denies: chills, fever Eyes: denies: eye pain, eye discharge, vision change ENT: denies: ear pain, throat pain Respiratory: denies: cough, shortness of breath, wheezing Cardiovascular: denies: chest pain, palpitations Endocrine: no symptoms reported, see HPI. denies: excessive sweating, intolerance to heat, increased hunger, increased urine, unexplained weight gain Gastrointestinal: denies: abdominal pain, nausea, diarrhea Genitourinary: denies: urgency, dysuria, discharge Musculoskeletal: denies: back pain, joint swelling, arthralgia Skin: rash, pruritus, other (Erythematous macular itchy painful rash on buttocks and forearms bilatearlly). denies: lesions Neurological: denies: headache, weakness, paresthesias Psychiatric: denies: anxiety, depression Hematological/Lymphatic: denies: easy bleeding, easy bruising ED Past Medical Hx - Past Medical History Hx Hypertension: Yes Hx Congestive Heart Failure: No Hx Diabetes: No Hx Psychiatric Treatment: Yes (depression, bipolar) Hx Asthma: No Hx COPD: No Additional medical history: high cholestrol - Surgical History Hx Cholecystectomy: Yes Additional Surgical History: x3. tubal ligation. hysterectomy - Social History Smoking Status: Never Smoker Substance Use Type: None - Medications Home Medications: Home Medications Medication Instructions Recorded Confirmed Last Taken Type HYDROcodone/APAP 7.5-325 [[place] 1 each PO Q6HR PRN #15 tablet 04/11/19 04/13/19 Unknown Rx 7.5/325] Ondansetron [Zofran Odt] 4 mg PO Q8HR PRN #20 tab.rapdis 04/13/19 Unknown Rx oxyCODONE /ACETAMINOPHEN [Percocet 1 tab PO Q6HR PRN #9 tablet 04/13/19 Unknown Rx 5/325] Silver Sulfadiazine [Silvadene] 25 gm TP DAILY #25 cream..g. 04/14/19 Unknown Rx diphenhydrAMINE [Benadryl CAP] 50 mg PO Q8HR PRN #30 capsule 04/14/19 Unknown Rx predniSONE [Deltasone] 60 mg PO QDAY #15 tab 04/14/19 Unknown Rx raNITIdine HCl [Zantac] 150 mg PO DAILY #30 tablet 04/14/19 Unknown Rx ED Physical Exam - General Limitations: No Limitations General appearance: alert, in no apparent distress - Head Head exam: Present: atraumatic, normocephalic, normal inspection - Eye Eye exam: Present: normal appearance, PERRL, EOMI Pupils: Present: normal accommodation - ENT ENT exam: Present: normal exam, normal orophraynx, mucous membranes moist, TM's normal bilaterally, normal external ear exam - Neck Neck exam: Present: normal inspection, full ROM. Absent: tenderness, meningismus, lymphadenopathy, thyromegaly - Respiratory Respiratory exam: Present: normal lung sounds bilaterally. Absent: respiratory distress, wheezes, rales, rhonchi, chest wall tenderness, accessory muscle use, decreased breath sounds, other - Cardiovascular Cardiovascular Exam: Present: regular rate, normal rhythm, normal heart sounds. Absent: systolic murmur, diastolic murmur, rubs, gallop - GI/Abdominal GI/Abdominal exam: Present: soft, normal bowel sounds. Absent: guarding, hyperactive bowel sounds, hypoactive bowel sounds, organomegaly - Rectal Rectal exam: Present: deferred - Extremities Exam Extremities exam: Present: normal inspection, full ROM, normal capillary refill - Back Exam Back exam: Present: normal inspection, full ROM. Absent: tenderness, CVA tenderness (L), muscle spasm - Neurological Exam Neurological exam: Present: alert, oriented X3, CN II-XII intact, normal gait, reflexes normal - Psychiatric Psychiatric exam: Present: normal affect, normal mood - Skin Skin exam: Present: warm, dry, intact, normal color, rash, erythema, urticaria (Erythematous macular urticarial rash on buttocks and forearms bilaterally with tenderness) ED Course Vital Signs 04/14/19 17:32 Temperature 98.4 F Pulse Rate 77 Respiratory 18 Rate Blood Pressure 136/80 [Left] O2 Sat by Pulse 97 Oximetry - Reevaluation(s) Reevaluation #1: 04/14/19 20:56 This is a 43-year-old female is a history of bipolar disorder who presented to the ED with acute allergic reaction to IV contrast dye characterized by erythematous tender urticarial rash on the buttocks and b ilateral forearms. In the ED, patient is alert and oriented 3 and is not in distress with normal vital signs. Patient was treated in the ED with Decadron, Benadryl and Pepcid, and also treated for pain. On reevaluation, the patient's pain is well controlled as well as itching. Patient is discharged home on medications for acute allergic reaction and advised to follow-up with her primary care physician in 3-5 days for reevaluation or return to the ED immediately if symptoms get worse. ED Medical Decision Making - Medical Decision Making This is a 43-year-old female is a history of bipolar disorder who presented to the ED with acute allergic reaction to IV contrast dye characterized by erythematous tender urticarial rash on the buttocks and bilateral forearms. In the ED, patient is alert and oriented 3 and is not in distress with normal vital signs. Patient was treated in the ED with Decadron, Benadryl and Pepcid, and also treated for pain. On reevaluation, the patient's pain is well controlled as well as itching. Patient is discharged home on medications for acute allergic reaction and advised to follow-up with her primary care physician in 3-5 days for reevaluation or return to the ED immediately if symptoms get worse. - Differential Diagnosis Acute allergic reaction; Irritant dermatitis; acute Urticaria, Itching Critical care attestation.: If time is entered above; I have spent that time in minutes in the direct care of this critically ill patient, excluding procedure time. ED Disposition Clinical Impression: Itching with irritation, Irritant dermatitis Acute allergic reaction Qualifiers: Encounter type: initial encounter Qualified Code(s): T78.40XA - Allergy, unspecified, initial encounter Disposition: DC-01 TO HOME OR SELFCARE Is pt being admited?: No Does the pt Need Aspirin: No Condition: Stable Instructions: Urticaria (ED), Allergies (ED) Additional Instructions: Take Medications with food, drink plenty of fluids and follow up with your primary care physician in 5-7 days for reevaluation. Return to the ED immediately if symptoms get worse. Prescriptions: diphenhydrAMINE [Benadryl CAP] 50 mg PO Q8HR PRN #30 capsule PRN Reason: Itching predniSONE [Deltasone] 60 mg PO QDAY #15 tab Silver Sulfadiazine [Silvadene] 25 gm TP DAILY #25 cream..g. raNITIdine HCl [Zantac] 150 mg PO DAILY #30 tablet Referrals: DAISY RECINOS [Other] - 3-5 Days Time of Disposition: 21:24 Print Language: NEPALI
== END 2019-04-14 21:36 | disposition home or self-care (01) ==
LOC: ED 16:34
DX: T78.40XA Allergy, unspecified, initial encounter (principal); L29.9 Pruritus, unspecified; L24.9 Irritant contact dermatitis, unspecified cause; Y92.89 Other specified places as the place of occurrence of the external cause
CPT/HCPCS: 96372; 99282; J1100; J1885; Q0162